=== PATIENT | male | born 1995 | race Caucasian/White ===

== ENCOUNTER 2024-11-17 22:28 | Emergency (ER) | payer SELFPAY ==
[~2024-11-17] VITALS: Ht 193 cm; Wt 98.6 kg
[2024-11-17 22:37] VITALS: BP 137/84; TEMP 97.8; O2SAT 98
== END 2024-11-18 00:21 | disposition left against medical advice (07) ==
LOC: M ED 22:28
DX: Z53.21 Procedure and treatment not carried out due to patient leaving prior to being seen by health care provider (principal)